=== PATIENT | female | born 2000 ===

== ENCOUNTER 2023-04-26 13:43 | Emergency (ER) | payer OTHER, MEDICAID | END 2023-04-26 15:00 | disposition home or self-care (01) | LOC: ERS 13:43 | DX: S30.0XXA Contusion of lower back and pelvis, initial encounter (principal); M62.830 Muscle spasm of back; V89.2XXA Person injured in unspecified motor-vehicle accident, traffic, initial encounter | CPT/HCPCS: 99282 ==